=== PATIENT | male | born 1990 | race Caucasian/White ===

== ENCOUNTER 2023-08-14 08:01 | Outpatient (CLI) | payer OTHER | END 2023-08-14 08:11 | disposition home or self-care (01) | LOC: SONOGRAMA 08:01 → EDSEX 08:01 → SONOGRAMA 08:11 | PROVIDERS: ATTEND General Practice | DX: R10.84 Generalized abdominal pain (principal) ==

== ENCOUNTER → 2023-08-14 09:39 | Outpatient (CLI) | payer OTHER ==
[2023-08-14 10:49] LABS: MEAN CELL VOLUME 82.6 fL (80.0-100.00); MEAN CORPUSCULAR HEMOGLOBIN 28.7 pg (27.00-32.0); MEAN CORPUSCULAR HGB CONC 34.8 g/dl (32.0-36.0); RED BLOOD COUNT 5.21 M/uL (4.00-6.00); RED CELL DISTRIBUTION WIDTH 13.8 % (11.5-14.5)
[2023-08-14 10:49] LABS: URINE APPEARANCE Clear; URINE BILIRRUBIN Negative (NEGATIVE); URINE BLOOD Negative; URINE COLOR Yellow; URINE GLUCOSE Negative (NEGATIVE); URINE LEUKOCYTE Negative; URINE NITRATE Negative; URINE PROTEIN Negative (NEGATIVE); URINE UROBILINOGEN 0.2 E.U./dl
[2023-08-14 11:06] LABS: URINE BACTERIA 0 uL (0.0-1933); URINE EPITHELIAL CELLS 0.6 uL (0.0-38.8); URINE RBC 0.5 uL (0.0-20.8); URINE WBC 0 uL (0.0-23.2)
[2023-08-14 11:14] LABS: PLATELET COUNT 248 K/uL (150-450)
[2023-08-14 11:31] LABS: ALBUMIN 4.6 gm/dL (3.4-5.0); BILIRUBIN TOTAL 0.77 mg/dL (0.3-1.2); CALCIUM 9.6 mg/dL (8.5-10.1); CHOL HDL RATIO 2.2 (0-5.0); CREATININE SERUM 0.96 mg/dL (0.70-1.30); GFR 90.77; GLOBULINA 3.1 G/DL (2.4-3.5); POTASSIUM 3.9 mEq/L (3.5-5.1); T4 FREE 0.93 NG/ML (0.76-1.46); TOTAL PROTEIN 7.7 gm/dL (6.4-8.2); TSH 0.83 uIU/mL (0.358-3.74)
[2023-08-14 11:51] LABS: ob NEGATIVE (NEGATIVE)
[2023-08-15 06:06] LABS: ANTI THYROID PEROXIDASE 11 IU/mL (0-34)
[2023-08-16 06:06] LABS: HELICOBACTER PYLORI STOOL AG Negative (Negative)
== END | disposition home or self-care (01) ==
LOC: LAB 09:39
PROVIDERS: ATTEND General Practice
DX: R10.84 Generalized abdominal pain (principal); E78.2 Mixed hyperlipidemia; N39.0 Urinary tract infection, site not specified; E07.89 Other specified disorders of thyroid; B96.81 Helicobacter pylori [H. pylori] as the cause of diseases classified elsewhere; R19.7 Diarrhea, unspecified; D51.8 Other vitamin B12 deficiency anemias